=== PATIENT | female | born 1980 | race Caucasian/White ===

== ENCOUNTER 2018-01-08 14:45 | Emergency (ER) | payer MEDICAID ==
--- NOTE | 2018-01-08 15:15 | EDPHY ---
H & P Time Seen by Provider: 01/08/18 14:59 HPI/ROS: CHIEF COMPLAINT: I can't help myself anymore HISTORY OF PRESENT ILLNESS: 37-year-old woman with bipolar disorder and fibromyalgia presents with her son for evaluation. Her fiancee left after an argument about 3 weeks ago and she has been feeling worse ever since. Continued thoughts of suicide but no actual injury or overdose, says she"would not do it because I love my children." Presents tonight with her sons an her anxiety is so severe that she"can not help myself"anymore. She says it is disabling and she is unable to do activities of her daily life because of her severe anxiety. She says she can't be alone, does have an appointment with her psychiatrist in [place] at [facility] tomorrow. Denies any recent medical illnesses or complaints. REVIEW OF SYSTEMS: Eye: no change in vision ENT: no sore throat Cardiac: no chest pain or syncope Pulmonary: no cough or SOB Abdomen: no vomiting, diarrhea, abdominal pain Musculoskeletal: Multiple areas of pain from fibromyalgia, took tramadol couple of times over the past week, unchanged from baseline. Skin: no rash Neuro: no headache Constitutional: no fever : no urinary symptoms A comprehensive 10 point review of systems is otherwise negative aside from elements mentioned in the history of present illness. PAST MEDICAL HISTORY: Includes bipolar, fibromyalgia, cholecystectomy, tubal ligation, partial thyroidectomy. Anxiety. Social history: Here with her son, tobacco smoker, no recent alcohol or drugs. General Appearance: Alert and conversant, cooperative. Eyes: No scleral icterus. ENT, Mouth: Normal mucous membranes. Respiratory: Normal respiratory effort, breath sounds equal, lungs are clear to auscultation. Cardiovascular: Regular rate and rhythm. Gastrointestinal: Abdomen is soft and non tender. Neurological: Alert, face symmetric, normal motor and sensory in extremities. Skin: Warm and dry, no rashes. Musculoskeletal: No peripheral edema. Psychiatric: Patient appears tearful, admits to suicidal ideation. Not hallucinating. Emergency Department course/MDM: Patient is here voluntarily. Plan for screening labs and psychiatric evaluation. Of note she has decreased her doses of gabapentin and seroquel from what they were previously. 1830: Patient had mental health evaluation and in consultation with the quality control checker I placed her on a mental health 72 hr hold for grave disability due to severe anxiety and being unable to function, as well as ongoing suicidal ideation. Global Chief Creative Officer was able to get the patient to state that she had thought of taking pills, the son had to stop her from doing that recently. Signed out to Luis Angel; medically cleared, evaluation by mental health in progress. Smoking Status: Current every day smoker Constitutional: Initial Vital Signs Temperature (C) 36.7 C 01/08/18 14:55 Heart Rate 87 01/08/18 14:55 Respiratory Rate 16 01/08/18 14:55 Blood Pressure 115/92 H 01/08/18 14:55 O2 Sat (%) 97 01/08/18 14:55 O2 Delivery Mode Room Air Allergies/Adverse Reactions: penicillin G Allergy (Verified 01/08/18 14:53) Home Medications: Medication Instructions Recorded Cholecalciferol Vit D3 [Vitamin D3 1,000 units PO DAILY 01/08/18 (*)] Gabapentin [Neurontin] 600 mg PO TID 01/08/18 Herbals/Supplements -Info Only 1 ea PO DAILY 01/08/18 Multivitamins [Multivitamin (*)] 1 each PO DAILY 01/08/18 [place]-3 Fatty Acids [Fish Oil 1000 1,000 mg PO DAILY 01/08/18 mg (*)] QUEtiapine FUMARATE [Seroquel 300 mg PO HS 01/08/18 300mg (*)] clonazePAM [klonoPIN (*)] 1 mg PO BID 01/08/18 traMADol [Ultram 50 mg (*)] 50 - 150 mg PO Q6H PRN 01/08/18 Medical Decision Making - Data Points Laboratory Results: Laboratory Results 01/08/18 15:18 01/08/18 15:18 Medications Given: Discontinued Medications Clonazepam (Klonopin) 1 mg PO EDNOW ONE Stop: 01/08/18 19:09 Last Admin: 01/08/18 19:26 Dose: 1 mg Gabapentin (Neurontin) 600 mg PO EDNOW ONE Stop: 01/08/18 19:09 Last Admin: 01/08/18 19:26 Dose: 600 mg Quetiapine Fumarate (Seroquel) 300 mg PO EDNOW ONE Stop: 01/08/18 22:01 Last Admin: 01/08/18 21:22 Dose: 300 mg Departure - Departure Disposition: Other Psych, Not [facility] Clinical Impression: Anxiety, Bipolar disorder Condition: Fair Instructions: Bipolar Disorder (ED), Generalized Anxiety Disorder (ED) Referrals: NONE *PRIMARY CARE P,. [Primary Care Provider] - As per Instructions (Dr. Jay at [facility] in [place],your PCP)
[2018-01-08 15:30] LABS: PLATELET COUNT 310 10^3/uL (150-400)
[2018-01-08] MEDS ORDERED: clonazePAM 1 MG TAB PO ONE (19:08)
[2018-01-08] MEDS ORDERED: GABAPENTIN 300 MG CAP PO ONE (19:08)
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
--- NOTE | 2018-01-08 21:29 | ASMTTCLDSP ---
TLC Discharge Disposition Disposition: Answers: Transfer Discharge Concerns/Recommendations: Notes: In consultation with [facility] ED physician, Vipul Menezes MD and on-call psychiatrist, Sharlene Santana MD, both concurred that pt appears to meet 27-65 criteria requiring psychiatric hospitalization as pt appears to be at risk of harm to self/gravely disabled due to a mental illness condition. For Transfers, Accepting [facility] Facility: For Transfers, Accepting Dr. Christophe Keith Psychiatrist: For Transfers, Reason Dual Dx Patient is Being Transferred: Date Signed: 01/08/2018 09:28 PM Electronically Signed By:Marguerite Gallego
[2018-01-08 21:58] VITALS: BP 104/56
[2018-01-08] MEDS ORDERED: QUEtiapine FUMARATE 300 MG TAB PO ONE (22:00)
== END 2018-01-08 21:35 ==
LOC: EEVIPCON 14:45
DX: F31.9 Bipolar disorder, unspecified (principal); F41.9 Anxiety disorder, unspecified; M79.7 Fibromyalgia; F17.210 Nicotine dependence, cigarettes, uncomplicated; Z91.5 Personal history of self-harm; Z88.0 Allergy status to penicillin
CPT/HCPCS: 80305; G0480